=== PATIENT | female | born 2000 | race Caucasian/White ===

== ENCOUNTER 2023-08-18 23:47 | Emergency (ER) | payer MEDICAID ==
[~2023-08-18] VITALS: Ht 170.2 cm; Wt 77.3 kg
[2023-08-19 02:44] VITALS: BP 118/68; PULSE 98; RESP 16; TEMP 98.5; O2SAT 98
== END 2023-08-19 03:18 ==
LOC: ER 23:49
DX: M79.604 Pain in right leg (principal); M79.605 Pain in left leg
CPT/HCPCS: 70450; 99284